=== PATIENT | female | born 1965 | race Caucasian/White ===

== ENCOUNTER 2018-01-23 21:30 | Emergency (ER) | payer BC ==
[~2018-01-23] VITALS: Ht 167.6 cm; Wt 139.5 kg
[~2018-01-23 21:30] MED LIST: ACARBOSE50 MG PO; AMOXICILLIN875 MG PO; AUGMENTIN875 MG PO; BENAZEPRIL HCL10 MG PO; CEFDINIR300 MG PO; CIPRO500 MG PO; CLEOCIN300 MG PO; Cipro PO; ECOTRIN81 M1 PO; FENOFIBRATE160 M1 PO; GLIMEPIRIDE4 MG PO; HUMALOG100 UNIT/2 SQ; INVOKANA100 MG PO; JANUVIA25 MG PO; KEFLEX500 MG PO; LEVEMIR FL100 UNIT/1 SC; LEVEMIR FL100 UNITS/ SC; LEVEMIR100 UNIT/2 SQ; LO-DOSE ASPIRIN81 M1 PO; LOTENSIN10 MG PO; LOTENSIN5 MG PO; METAGLIP 5/51 TABLET PO; METFORMIN HCL1000 MG PO; MOTRIN800 MG PO; NOVOLOG PE100 UNITS/ S; NOVOLOG PE100 UNITS/ SC; OMEGA III EPA1000 MG PO; PYRIDIUM100 MG PO
[2018-01-23 22:25] VITALS: BP 187/109
== END 2018-01-23 22:21 | disposition home or self-care (01) ==
LOC: EME 21:30
DX: M26.622 Arthralgia of left temporomandibular joint (principal); I10 Essential (primary) hypertension; E78.5 Hyperlipidemia, unspecified; E11.9 Type 2 diabetes mellitus without complications; Z87.442 Personal history of urinary calculi; Z79.4 Long term (current) use of insulin; Z79.82 Long term (current) use of aspirin
CPT/HCPCS: 93005; 99281; 99283

== ENCOUNTER 2018-06-09 19:34 | Emergency (ER) | payer BC ==
[~2018-06-09] VITALS: Ht 167.6 cm; Wt 141.6 kg
[2018-06-09 20:34] LABS: APPEARANCE CLOUDY ((CLEAR)); BILIRUBIN NEGATIVE; BLOOD LARGE; COLOR YELLOW ((YELLOW)); GLUCOSE (STRIP) >=500; KETONES NEGATIVE; LEUKOCYTES MODERATE; NITRITE NEGATIVE; PROTEIN (STRIP) 100; SPECIFIC GRAVITY 1.018 (1.000-1.030); UROBILINOGEN 0.2 MG/DL (0.2-1.0)
[2018-06-09 21:38] LABS: BACTERIA 1+ /HPF; EPITHELIAL CELLS RARE /HPF; RED BLOOD CELLS TNTC /HPF (0-5); UCUL ADDED? YES; WHITE BLOOD CELLS 20-30 /HPF (0-5)
[2018-06-09 21:39] LABS: MUCUS TRACE /LPF
[2018-06-09] MEDS ORDERED: KEFLEX500 MG PO (22:38)
[2018-06-09] MEDS ORDERED: PYRIDIUM200 MG PO (22:38)
[2018-06-09 22:44] VITALS: BP 151/84
== END 2018-06-09 22:44 | disposition home or self-care (01) ==
LOC: EME 19:34
DX: N39.0 Urinary tract infection, site not specified (principal); I10 Essential (primary) hypertension; E78.5 Hyperlipidemia, unspecified; E11.9 Type 2 diabetes mellitus without complications; Z79.4 Long term (current) use of insulin; Z79.82 Long term (current) use of aspirin; Z87.442 Personal history of urinary calculi
CPT/HCPCS: 81003; 87086; 99281; 99284